=== PATIENT | female | born 1995 | race Caucasian/White ===

== ENCOUNTER 2024-03-18 09:32 | Day surgery (SDC) | payer OTHER ==
[2024-03-18] MEDS: Lactated Ringers 1,000 ML IV SCH (09:54)
[2024-03-18] MEDS ORDERED: Lidocaine 2% 20 ML MDV ONE (10:12)
[2024-03-18] MEDS ORDERED: Midazolam 1 MG/ML 2 ML SDV ONE (10:12)
[2024-03-18] MEDS ORDERED: Propofol 200 MG/20 ML SDV ONE (10:12)
[2024-03-18] MEDS ORDERED: Flumazenil 0.1 MG/ML 10 ML MDV ONE (10:12)
[2024-03-18] MEDS ORDERED: Ketamine 200 MG/20 ML MDV ONE (10:12)
[2024-03-18] MEDS ORDERED: fentaNYL 50 MCG/ML SDV ONE (10:12)
== END 2024-03-18 11:25 | disposition home or self-care (01) ==
LOC: CC.SDS 09:32
PROVIDERS: ATTEND Family Medicine
DX: K29.50 Unspecified chronic gastritis without bleeding (principal); K21.9 Gastro-esophageal reflux disease without esophagitis; Z79.899 Other long term (current) drug therapy
CPT/HCPCS: 00731; 36415; 84703; 87081; J2250; J2704; J3010; J3490; J7120